=== PATIENT | male | born 1990 | race African-American/Black ===

== ENCOUNTER 2020-05-31 18:34 | Emergency (ER) | payer OTHER ==
[~2020-05-31] VITALS: Ht 182.9 cm; Wt 106.6 kg
[2020-05-31 18:34] VITALS: BP 144/93
[~2020-05-31 18:34] MED LIST: AUGMENTIN 875875 MG PO; MEDROL DOSPAK21 TAB PO; NOHOMEMEDICATIONS; NORCO 5-325 TA1 EACH PO; ZPAK PO
[2020-05-31] MEDS ORDERED: MOBIC7.5 MG PO (20:12)
[2020-05-31] MEDS ORDERED: CYCLOBENZAPRINE5 MG PO (20:12)
== END 2020-05-31 20:32 | disposition home or self-care (01) ==
LOC: ER 18:34
DX: M25.512 Pain in left shoulder (principal); M54.6 Pain in thoracic spine; M54.2 Cervicalgia; V49.9XXA Car occupant (driver) (passenger) injured in unspecified traffic accident, initial encounter; Y93.89 Activity, other specified; Y92.89 Other specified places as the place of occurrence of the external cause; Y99.8 Other external cause status

== ENCOUNTER 2020-07-29 03:32 | Emergency (ER) | payer OTHER ==
[~2020-07-29] VITALS: Ht 182.9 cm; Wt 104.3 kg
[~2020-07-29 03:32] MED LIST changes: +CYCLOBENZAPRINE5 MG PO; +MOBIC7.5 MG PO
[2020-07-29 04:13] LABS: BASOPHILS 0.6 % (0.0-2.0); HEMOGLOBIN 14.9 gm/dL (14.0-18.0); RDW 13.3 % (10.5-14.5); WBC 5.7 thou/uL (4.0-11.0)
[2020-07-29 04:14] LABS: ANION GAP 14 mmol/L (7-16); BUN 14 mg/dL (7-18); CALCIUM 8.9 mg/dL (8.5-10.1); CHLORIDE 105 mmol/L (98-107); CO2 22 mmol/L (21-32); CREATININE 1.1 mg/dL (0.7-1.3); GLUCOSE 103 mg/dL (74-106); POTASSIUM 3.7 mmol/L (3.5-5.1); SODIUM 141 mmol/L (136-145)
[2020-07-29 04:15] LABS: EOSINOPHILS 1.2 % (0.0-3.0); HEMATOCRIT 43.8 % (42.0-52.0); LYMPHOCYTES 37.1 % (24.0-44.0); MCH 30.4 pg (26.0-34.0); MCHC 34.1 g/dL (28.0-37.0); MCV 89.2 fL (80.0-100.0); MONOCYTES 8.7 % (1.0-8.0); PLATELET COUNT 172 thou/uL (150-400); POLYS 52.4 % (36.0-66.0); RBC 4.92 mil/uL (4.50-6.00)
[2020-07-29 04:16] LABS: URINE BILIRUBIN NEGATIVE (Negative); URINE BLOOD NEGATIVE (Negative); URINE CLARITY CLEAR; URINE COLOR YELLOW; URINE GLUCOSE-RANDOM* NEGATIVE (Negative); URINE KETONES NEGATIVE (Negative); URINE LEUKOCYTES-REFLEX NEGATIVE (Negative); URINE NITRITE-REFLEX NEGATIVE (Negative); URINE PROTEIN (DIPSTICK) NEGATIVE (Negative); URINE SPECIFIC GRAVITY 1.025 (1.005-1.035); URINE UROBILINOGEN 0.2 E.U./dl (0.2-1.0)
[2020-07-29 04:20] LABS: SALICYLATE < 2.8 mg/dL (2.8-20.0); SGOT 14 U/L (15-37); SGPT 21 U/L (30-65); TOTAL BILIRUBIN 0.3 mg/dL (0.2-1.0); TOTAL PROTEIN 7.1 g/dL (6.4-8.2)
[2020-07-29 04:23] LABS: AMP/METHAMP Negative (Negative); BARBITURATES Negative (Negative); BENZODIAZEPINES Negative (Negative); COCAINE Negative (Negative); METHADONE Negative (Negative); OPIATES Negative (Negative); PCP Negative (Negative)
[2020-07-29 06:52] VITALS: BP 119/67
== END 2020-07-29 06:47 | disposition home or self-care (01) ==
LOC: ER 03:32
PROVIDERS: Emergency Medicine
DX: F10.129 Alcohol abuse with intoxication, unspecified (principal); F32.9 Major depressive disorder, single episode, unspecified; R45.851 Suicidal ideations; Z20.828 Contact with and (suspected) exposure to other viral communicable diseases; Y90.6 Blood alcohol level of 120-199 mg/100 ml

== ENCOUNTER 2021-06-20 02:08 | Emergency (ER) | payer OTHER ==
[~2021-06-20] VITALS: Ht 182.9 cm; Wt 102.1 kg
[2021-06-20 02:12] VITALS: BP 140/81
[2021-06-20] MEDS ORDERED: ADVIL LIQUI-GE200 MG PO (02:17)
[2021-06-20] MEDS ORDERED: CRUTCHES MISCELL (02:59)
== END 2021-06-20 03:43 | disposition home or self-care (01) ==
LOC: ER 02:08
DX: S93.402A Sprain of unspecified ligament of left ankle, initial encounter (principal); S90.212A Contusion of left great toe with damage to nail, initial encounter; Z79.899 Other long term (current) drug therapy; X50.1XXA Overexertion from prolonged static or awkward postures, initial encounter; Y93.89 Activity, other specified; Y92.89 Other specified places as the place of occurrence of the external cause; Y99.8 Other external cause status